=== PATIENT | male | born 1935 | race Hispanic/Latino ===

== ENCOUNTER 2017-02-24 04:26 | Inpatient (IN) | payer MEDICARE, OTHER ==
[2017-02-24] MEDS ORDERED: Albuterol-Ipratrop 3 mg / 0.5 (3 ml) UD IH STA (04:41)
--- NOTE | 2017-02-24 04:48 | ED PDOC ---
Arrival/HPI - General Historian: Spouse, Family - History of Present Illness Time/Duration: 1-3 hours Symptom Onset: Sudden <Jack Castano - Last Filed: 02/24/17 07:07> <Jeanette Hoyt - Last Filed: 02/24/17 08:19> - General Chief Complaint: Shortness Of Breath Time Seen by Provider: 02/24/17 04:33 - History of Present Illness Narrative History of Present Illness (Text): 02/24/17 04:44 81 year old male with past medical history of COPD, emphysema, CHF, a fib, CAD, and CKD presents to [facility] ED for shortness of breath. History per patient's daughter, patient has been having shortness of breath for the past 2 weeks. Last night, patient was sleeping at night and all of the sudden his shortness of breath worsened. EMS was called. On the way to the ED patient was sating at 81%, he was then given 1 dose of duoneb, 125mg of albuterol, and 1 dose of solumedrol. Patient's pulse ox improved to 90%. Patient's latest Echocardiogram was done in November 2016, showed EF 35%. Patient denies headache, dizziness, chest pain, abdominal pain, nausea, vomiting, diarrhea, or urinary symptoms. (Jack Castano) Past Medical History - Provider Review Nursing Documentation Reviewed: Yes - Infectious Disease Hx of Infectious Diseases: None - Tetanus Immunization Tetanus Immunization: Unknown - Cardiac Hx Cardiac Disorders: Yes Hx Congestive Heart Failure: Yes - Pulmonary Hx Chronic Obstructive Pulmonary Disease (COPD): Yes - Neurological Hx Neurological Disorder: No Hx Dizziness: No (denied) - HEENT Hx HEENT Disorder: No - Renal Hx Renal Disorder: No - Endocrine/Metabolic Hx Endocrine Disorders: No - Hematological/Oncological Hx Blood Disorders: No - Integumentary Hx Dermatological Disorder: No - Musculoskeletal/Rheumatological Hx Falls: No - Gastrointestinal Hx Gastrointestinal Disorders: Yes (hernia) Hx Gastroesophageal Reflux: Yes - Genitourinary/Gynecological Hx Genitourinary Disorders: No Hx Incontinence: (denied) - Psychiatric Hx Emotional Abuse: No Hx Physical Abuse: No Hx Substance Use: No - Surgical History Hx Joint Replacement: Yes (bilateral knee) - Anesthesia Hx Anesthesia: No Hx Anesthesia Reactions: No Hx Malignant Hyperthermia: No - Suicidal Assessment Feels Threatened In Home Enviroment: No <Jack Castano - Last Filed: 02/24/17 07:07> Family/Social History - Physician Review Nursing Documentation Reviewed: Yes Family/Social History: No Known Family HX Smoking Status: Former Smoker Hx Alcohol Use: No Hx Substance Use: No Hx Substance Use Treatment: No <Jack Castano - Last Filed: 02/24/17 07:07> - Physician Review Nursing Documentation Reviewed: Yes Family/Social History: No Known Family HX <EvelinaJeanette - Last Filed: 02/24/17 08:19> Allergies/Home Meds <Jack Castano - Last Filed: 02/24/17 07:07> <EvelinaJeanette - Last Filed: 02/24/17 08:19> Allergies/Adverse Reactions: Allergies No Known Allergies Allergy (Verified 04/08/16 09:20) Home Medications: Home Meds Medication Instructions Recorded Confirmed Atorvastatin [Lipitor] 20 mg PO DIN 03/05/16 11/20/16 Esomeprazole Magnesium [Nexium] 40 mg PO QAM 03/05/16 11/20/16 Fluticasone/Salmeterol 500/50 0 puff IH Q12 03/05/16 11/20/16 [Advair Diskus 500/50] Furosemide [Lasix] 40 mg PO QAM 03/05/16 11/20/16 Potassium Chloride [K-Tab ER] 10 meq PO QAM 03/05/16 11/20/16 Sildenafil Citrate [Sildenafil] 20 mg PO TID 03/05/16 11/20/16 diltiaZEM [Cardizem] 30 mg PO BID 03/05/16 11/20/16 Apixaban [Eliquis] 2.5 mg PO BID 04/08/16 11/20/16 Review of Systems - Physician Review All systems were reviewed & negative as marked: Yes - Review of Systems Constitutional: Fevers. absent: Fatigue Eyes: Normal. absent: Vision Changes ENT: Normal Respiratory: SOB, Cough, Wheezing Cardiovascular: absent: Chest Pain, Syncope Gastrointestinal: Normal. absent: Constipation, Diarrhea, Nausea, Vomiting Musculoskeletal: Normal. absent: Back Pain Skin: Normal. absent: Rash, Pruritis Neurological: Normal. absent: Headache, Dizziness Endocrine: Diaphoresis Hemo/Lymphatic: Normal Psychiatric: Normal. absent: Anxiety, Depression <Juan Castanobrionna - Last Filed: 02/24/17 07:07> Physical Exam Vital Signs Reviewed: Yes Temperature: Febrile Blood Pressure: Normal Pulse: Tachycardic Respiratory Rate: Normal Appearance: Positive for: Non-Toxic, Ill-Appearing Pain Distress: None Mental Status: Positive for: Alert and Oriented X 3 - Systems Exam Head: Present: Atraumatic, Normocephalic Pupils: Present: PERRL Extroacular Muscles: Present: EOMI Conjunctiva: Present: Normal Mouth: Present: Moist Mucous Membranes Neck: Present: Normal Range of Motion Respiratory/Chest: Present: Respiratory Distress (patient on breathing mask), Other (diffused crackles). No: Clear to Auscultation Cardiovascular: Present: Regular Rate and Rhythm, Normal S1, S2. No: Murmurs Abdomen: Present: Normal Bowel Sounds. No: Tenderness, Distention, Peritoneal Signs Upper Extremity: Present: Normal Inspection, Neurovascularly Intact. No: Cyanosis, Edema Lower Extremity: Present: Edema (bilateral lower extremity edema), NORMAL PULSES , Neurovascularly Intact Neurological: Present: GCS=15, CN II-XII Intact, Speech Normal Skin: Present: Warm, Erythematous Psychiatric: Present: Alert, Oriented x 3, Normal Insight, Normal Concentration <Jack Castano - Last Filed: 02/24/17 07:07> Vital Signs Temp Pulse Resp BP Pulse Ox 02/24/17 08:05 114 H 18 136/51 L 96 02/24/17 05:30 100.8 F H 119 H 18 107/63 92 L 02/24/17 04:45 20 92 L 02/24/17 04:42 99.7 F H 116 H 16 106/72 92 L Medical Decision Making Re-evaluation Time: 05:41 Reassessment Condition: Improving,but remains with symptoms (Patient on 3L Oxygen via nc, sating at 90%, sleeping, not in acute distress) <Jack Castano - Last Filed: 02/24/17 07:07> <Jeanette Hoyt - Last Filed: 02/24/17 08:19> ED Course and Treatment: 02/24/17 04:52 -CBC, CMP -BNP, cardiac iso, EKG -CRP, ESR, procal -Mg, Phos -VBG -blood, urine culture -UA -Duoneb 02/24/17 06:19 Lactate 2.1, code sepsis was called vancomycin and maxipime ordered 02/24/17 07:[address] Nance agreed with admission (Jack Castano) 02/24/17 05:53 Impression: In agreement with resident note, which includes further HPI details. Patient was seen and evaluated with resident, came up with plan and treatment together. Pt, whose past medical history includes COPD, emphysema, CHF, a fib, CAD, and CKD, presented for suddent onset of shortness of breath tonight. Plan: -- EKG -- Chest X-ray -- Labs, VBG, BNP, cardiac enzymes, blood cultures -- Urinalysis, urine cultures -- Duoneb -- Reassess and disposition Progress Notes: 02/24/17 08:18 Patient with noted history with low grade temp and wbc of 18K - lactic acid of 2.1 -code sepsis called - given iv antibiotics; Gentle hydration used instead of sepsis protocol because of history of CHF. Case discussed with Dr. Nance for admission to his service. (Jeanette Hoyt) - Lab Interpretations Lab Results: 02/24/17 05:43 02/24/17 05:43 Lab Results 02/24/17 05:45: pO2 70 H, VBG pH 7.39, VBG pCO2 43.0, VBG HCO3 26.0, VBG Total CO2 27.3, VBG O2 Sat (Calc) 94.9 H, VBG Base Excess 0.8, VBG Potassium 4.0, Sodium 136.0, Chloride 104.0, Glucose 106, Lactate 2.1, FiO2 21.0, Venous Blood Potassium 4.0 02/24/17 05:43: WBC 18.1 H D, RBC 4.76, Hgb 12.7 L, Hct 39.9 L, MCV 83.8, MCH 26.7, MCHC 31.8, RDW 20.3 H, Plt Count 181, MPV 11.1 H, Neutrophils % (Manual) 74 H, Band Neutrophils % 4 H, Lymphocytes % (Manual) 8 L, Atypical Lymphs % 1 H , Monocytes % (Manual) 13 H, Toxic Granulation Slight, Platelet Evaluation Normal, Anisocytosis (manual) 2+, ESR 8, PT 13.3 H, INR 1.23 H, APTT 30.1, Sodium 139, Chloride 99, Potassium 3.6, Carbon Dioxide 26, Anion Gap 18, BUN 38 H, Creatinine 1.6 H, Est GFR ( Amer) 50, Est GFR (Non-Af Amer) 42, Random Glucose 101, Calcium 9.2, Phosphorus 3.0, Magnesium 1.8, Total Bilirubin 2.3 H, AST 34, ALT 44, Alkaline Phosphatase 94, Lactate Dehydrogenase 656, Total Creatine Kinase 87, Troponin I 0.09, NT-Pro-B Natriuret Pep 8080 H, Total Protein 7.1, Albumin 3.9, Globulin 3.2, Albumin/Globulin Ratio 1.2 02/24/17 05:30: Urine Color Yellow, Urine Appearance Clear, Urine pH 6.0, Ur Specific [place] 1.020, Urine Protein Trace H, Urine Glucose (UA) Negative, Urine Ketones Negative, Urine Blood Negative, Urine Nitrate Negative, Urine Bilirubin Negative, Urine Urobilinogen 1.0 H, Ur Leukocyte Esterase Negative, Urine RBC 0 - 2, Urine WBC 0 - 2, Ur Epithelial Cells 3 - 4, Urine Bacteria Mod - RAD Interpretation Narrative RAD Interpretations (Text): 02/24/17 05:38 CXR showed diffused fa (Jack Castano) Radiology Orders: 02/24/17 04:42 CXR [CHEST PORTABLE] [RAD] Stat - Medication Orders Current Medication Orders: Sodium Chloride (Sodium Chloride 0.9%) 1,000 mls @ 100 mls/hr IV .Q10H [facility] Last Admin: 02/24/17 07:29 Dose: 100 MLS/HR eMAR Start Stop Document 02/24/17 07:29 EQ (Rec: 02/24/17 07:29 EQ [id number]) Intravenous Solution Start Date 02/24/17 Start Time 07:29 Discontinued Medications Albuterol/Ipratropium (Duoneb 3 Mg/0.5 Mg (3 Ml) Ud) 3 ml IH STAT STA Stop: 02/24/17 04:42 Last Admin: 02/24/17 05:00 Dose: 3 ML Cefepime HCl (Maxipime 2gm) 100 mls @ 100 mls/hr IVPB STAT STA PRN Reason: Protocol Stop: 02/24/17 07:28 Last Admin: 02/24/17 07:29 Dose: 100 MLS/HR eMAR Start Stop Document 02/24/17 07:29 EQ (Rec: 02/24/17 07:29 EQ [id number]) Intravenous Solution Start Date 02/24/17 Start Time 07:29 Vancomycin HCl (Vancomycin 1gm) 250 mls @ 167 mls/hr IVPB STAT STA PRN Reason: Protocol Stop: 02/24/17 07:58 Ipratropium [place] (Atrovent) 0.5 mg IH STAT STA Stop: 02/24/17 07:08 Last Admin: 02/24/17 08:04 Dose: 0.5 MG Levalbuterol HCl (Xopenex) 1.25 mg IH STAT STA Stop: 02/24/17 07:07 Last Admin: 02/24/17 08:04 Dose: 1.25 MG Methylprednisolone (Solu-Medrol) 125 mg IVP STAT STA Stop: 02/24/17 07:07 Last Admin: 02/24/17 07:29 Dose: Disposition/Present on Arrival - Present on Arrival Any Indicators Present on Arrival: Yes History of DVT/PE: No History of Uncontrolled Diabetes: No Urinary Catheter: Yes History of Decub. Ulcer: No History Surgical Site Infection Following: None - Disposition Have Diagnosis and Disposition been Completed?: Yes Disposition Time: 07:08 <Jack Castano - Last Filed: 02/24/17 07:07> - Present on Arrival Any Indicators Present on Arrival: No - Disposition Have Diagnosis and Disposition been Completed?: Yes Disposition Time: 07:00 Patient Plan: Admission <Jeanette Hoyt - Last Filed: 02/24/17 08:19> - Disposition Diagnosis: Sepsis, CHF exacerbation, COPD exacerbation Disposition: HOSPITALIZED Patient Problems: Current Active Problems Problem Status Diagnosed CHF exacerbation Acute COPD exacerbation Acute Sepsis Acute Condition: STABLE
[2017-02-24 05:49] LABS: URINE BILIRUBIN NEGATIVE (NEGATIVE); URINE BLOOD NEGATIVE (NEGATIVE); URINE GLUCOSE (UA) NEGATIVE (NEGATIVE); URINE KETONE NEGATIVE (NEGATIVE); URINE LEUKOCYTE ESTERASE NEGATIVE Leu/uL (NEGATIVE); URINE PROTEIN TRACE mg/dL (<30 mg/dL)
[2017-02-24 05:50] LABS: URINE APPEARANCE CLEAR (CLEAR); URINE COLOR YELLOW (YELLOW)
[2017-02-24 05:52] LABS: VENOUS BLOOD GAS BASE EXCESS 0.8 mmol/L (0.0-2.0); VENOUS BLOOD PH 7.39 (7.32-7.43)
[2017-02-24 05:58] LABS: ALB/GLOB RATIO 1.2 (1.1-1.8); BILIRUBIN,TOTAL 2.3 mg/dL (0.2-1.3); CALCIUM 9.2 mg/dL (8.4-10.5); MAGNESIUM 1.8 mg/dL (1.7-2.2); POTASSIUM 3.6 mmol/L (3.6-5.0); TOTAL PROTEIN 7.1 g/dL (5.8-8.3)
[2017-02-24 06:00] LABS: HEMATOCRIT 39.9 % (42.0-52.0); INR 1.23 (0.93-1.08); MEAN CELL VOLUME 83.8 fL (80.0-105.0); MEAN CORPUSCULAR HEMOGLOBIN 26.7 pg (25.0-35.0); MEAN CORPUSCULAR HGB CONC 31.8 g/dl (31.0-37.0); MEAN PLATELET VOLUME 11.1 fl (7.0-11.0); PARTIAL THROMBOPLASTIN TIME 30.1 Seconds (23.7-30.8); PLATELET COUNT 181 10^3/uL (120.0-450.0); RED CELL DISTRIBUTION WIDTH 20.3 % (11.5-14.5); WHITE BLOOD COUNT 18.1 10^3/ul (4.5-11.0)
[2017-02-24 06:02] LABS: URINE RBC 0 - 2 /hpf (0-2)
[2017-02-24 06:06] LABS: URINE BACTERIA MOD (NEG)
[2017-02-24 06:07] LABS: URINE WBC 0 - 2 /hpf (0-6)
[2017-02-24 06:09] LABS: TROPONIN I 0.09 ng/mL
[2017-02-24 06:14] LABS: ADD MANUAL DIFF? YES
[2017-02-24] MEDS ORDERED: Cefepime IV 2 gm in NS 100 ML IVPB STA (06:29)
[2017-02-24] MEDS ORDERED: Vancomycin 1gm in NS 250ml 250 ML IVPB STA (06:29)
[2017-02-24] MEDS ORDERED: Sodium Chloride 0.9% 1,000 ML IV SCH (06:30)
[2017-02-24 06:57] LABS: ATYPICAL LYMPHOCYTE 1 % (0.0-0.0); BAND 4 % (0-2); NEUTROPHIL 74 % (50.0-70.0)
[2017-02-24 06:58] LABS: PLATELET ESTIMATE NORMAL (NORMAL)
[2017-02-24 06:59] LABS: ANISOCYTOSIS 2+; TOXIC GRANULATION SLIGHT
[2017-02-24] MEDS ORDERED: Levalbuterol 1.25 MG/3 ML Inhal Soln UD IH STA (07:06)
[2017-02-24] MEDS ORDERED: Ipratropium 0.02% Inhal Soln (0.5 mg/2.5 ml) UD IH STA (07:07)
[2017-02-24 08:14] LABS: ERYTHROCYTE SEDIMENTATION RATE 8 mm/hr (0.00-15.0)
--- NOTE | 2017-02-24 08:57 | RAD ---
HISTORY: shortness of breath COMPARISON: 11/21/2016 FINDINGS: LUNGS: Patchy opacity at both lung bases common nonspecific. Opacity at left base appears new. PLEURA: No significant pleural effusion identified, no pneumothorax apparent. CARDIOVASCULAR: Normal. OSSEOUS STRUCTURES: No significant abnormalities. VISUALIZED UPPER ABDOMEN: Normal. OTHER FINDINGS: None. IMPRESSION: Bibasilar patchy opacity. Possible pneumonia. Followup advised.
[2017-02-24 09:16] LABS: VENOUS BLOOD GAS BASE EXCESS -0.7 mmol/L (0.0-2.0); VENOUS BLOOD PH 7.42 (7.32-7.43)
--- NOTE | 2017-02-24 10:42 | CARD ---
APPROVED REPORT EKG Measurement Heart [id number] <Conclusion> Atrial fibrillation with rapid ventricular response ST & T wave abnormality, consider inferior ischemia or digitalis effect Abnormal ECG
[2017-02-24] MEDS ORDERED: Digoxin 500 mcg/2ml (0.5 mg/2ml) Inj IVP ONE (11:54)
[2017-02-24 12:23] VITALS: PULSE 103
[2017-02-24 12:52] LABS: VENOUS BLOOD GAS BASE EXCESS -2.3 mmol/L (0.0-2.0); VENOUS BLOOD PH 7.42 (7.32-7.43)
--- NOTE | 2017-02-24 13:13 | HP ---
CHIEF COMPLAINT: Shortness of breath, temperature 100.8. HISTORY OF PRESENT ILLNESS: The patient is an 81-year-old male with a 1-week history of sl ightly worsening shortness of breath and difficulty in bringing up sputum. He has a history of sever e chronic obstructive pulmonary disease secondary to tobacco ([id number]) and has known symptomati c obstructive coronary artery disease following an earlier cardiac catheterization. He was recently in the hospital in November of the same year and was placed on Primacor (milrinone) and improved enoug h so that he could be able to be discharged home and has done well up until the past week. At the [facility] admission, he remained on 10 mg of prednisone daily and this seemed to carry him up until now. In the Emergency Room, he is seen and has an elevated white count of 18,000 with left shift and a tem perature of 100.8. PAST MEDICAL HISTORY: 1. Atrial flutter/fibrillation with rapid heart rate, non-ST NH. 2. Gout 3. Renal insufficiency. 4. Severe chronic obstructive pulmonary disease with exacerbations. ALLERGIES: None. MEDICATIONS: Cardizem 30 mg b.i.d., prednisone 10 mg daily, sildenafil 20 mg t.i.d., Lasix 40 mg jody ly, Advair Diskus 500/50 b.i.d., Nexium 40 mg daily, Lipitor 20 at dinner and Eliquis 2.5 b.i.d. SOCIAL HISTORY: His tobacco has discontinued 15 years ago. PHYSICAL EXAMINATION: VITAL SIGNS: He weighs 145 pounds. His blood pressure is 130/80 and his pulse is 117. LUNGS: Bibasilar crackles with rhonchi. EXTREMITIES: Without edema or clubbing. NEUROLOGIC: Focally intact. IMPRESSION UPON ADMISSION: 1. Exacerbated chronic obstructive pulmonary disease with pneumonitis and probable congestive heart failure. 2. Renal insufficiency. 3. Atrial fibrillation. 4. Gout. RECOMMENDATION UPON ADMISSION: Consultation with cardiology, pulmonology and initiation of antibioti cs as well as diuresis and atrial fibrillation rate management. This dictation will be electronically signed without being read. Sky Nance MD cc: [phone] TT: 02/24/2017 13:13:02 en
[2017-02-24 15:21] VITALS: BMI 24.7
[2017-02-24] MEDS: MethylPREDNISolone 40 mg Vial IVP SCH ×2 (15:52→21:21)
[2017-02-24] MEDS: Sildenafil 20 MG TAB PO SCH ×2 (15:52→19:09)
[2017-02-24] MEDS ORDERED: Albuterol-Ipratrop 3 mg / 0.5 (3 ml) UD ONE ×2 (16:27→20:00)
[2017-02-24] MEDS: Albuterol-Ipratrop 3 mg / 0.5 (3 ml) UD IH SCH ×2 (16:35→19:49)
--- NOTE | 2017-02-24 18:27 | CON ---
DATE: 02/24/2017 REASON FOR CONSULTATION: Shortness of breath 1-2 weeks, low grade fever, elevated WBC count, history of atrial fibrillation chronic, and CAD as well as pulmonary hypertension. BRIEF CLINICAL HISTORY: This is an 81-year-old male with past medical history significant for nonobs tructive coronary artery disease status post cardiac catheterization 12/08/2015 when the patient was a dmitted with [id number] myocardial infarction. History of chronic kidney disease, ex-smoker, CODING TECH D, advanced COPD, chronic atrial fibrillation on Eliquis, history of syncope, status post loop record er implantation on 03/05/2016, history of Holter in the past, who admitted here with one week history of cough, shortness of breath and difficulty in bringing the phlegm. This morning, he has a low grad e fever, elevated WBC count as well. PAST HISTORY: Significant for pulmonary hypertension, [id number] myocardial infarction, status p ost cardiac catheterization 12/08/2015, nonobstructive coronary artery disease, chronic obstructive pu lmonary disease, advanced COPD, chronic atrial fibrillation on Eliquis, status post loop recorder imp lantation on 03/05/2016. PREVIOUS CARDIAC WORKUP: As follows: The patient had a cardiac catheterization that revealed normal coronaries, preserved ejection fraction 55% to 60%, EDP was in the range of 15-18, pulmonary hyperte nsion with pulmonary vascular resistance 15-16 Wood Units, atrial fibrillation, controlled rate, vee re PAD, CKD. Right heart catheterization revealed RA 18, RV 80/20, PA pressure 80/40, mean PA 50-55. Pulmonary capillary wedge pressure 15. Pulmonary vascular resistance 15-16 Wood Units. Cardiac ou tput 2.3 liter, cardiac index was 1.4 liters, ejection fraction 55% to 60%. Last echo 12/02/2015 show s ejection fraction 50%, RV severely dilated, moderate RV dysfunction, trace aortic regurgitation, tr regina mitral regurgitation, [id number] tricuspid regurgitation. Status post loop recorder date d 03/05/2016 when the patient had multiple episodes of syncope. Since then, patient has no further ep isode of syncopal episode noted. Most recent echo dated 11/22/2016 done. That shows ejection fractio n decreased to 35% to 40%, systolic RV function is moderately to severely reduced, mild mitral regurg itation, moderate tricuspid regurgitation, RV systolic pressure 48, mild pulmonary vascular insuffici ency, no vegetation or thrombus noted. The patient had a loop recorder on 03/08/2016. The most recen t study is an echo that was 11/22/2016 that shows decreased LV function, ejection fraction 35%. That echo was 11/22/2016. Ejection fraction 35%. The patient had a MUGA scan done prior to that, 11/23/2016 . That shows normal LV function, ejection fraction 60%, diffuse RV hypokinesis, dated 11/23/2016 is t he MUGA scan. SOCIAL HISTORY: History of smoking, ex-smoker, quit more than 20 years ago, but [id number] of smok ing. No history of alcohol abuse. ALLERGIES: No known drug allergy. CURRENT MEDICATIONS: The patient is taking at home prednisone 10 mg daily, Cardizem 30, sildenafil t hat is Revatio 20 mg 3 times a day, potassium chloride, Lasix 40, atorvastatin, Eliquis. REVIEW OF SYSTEMS: As per HPI. PHYSICAL EXAMINATION: As follows: VITAL SIGNS: Temperature afebrile, heart rate 55, blood pressure 121/74. HEENT: PERRLA, intact. NECK: Supple. No carotid bruits. No thyromegaly. CHEST: Clear to auscultation. HEART: S1, S2 regular. ABDOMEN: Soft. EXTREMITIES: Clubbing and cyanosis negative. BLOOD WORKUP: As follows: WBC 18.1, hemoglobin 12.7, hematocrit 39.9, platelet count 181. Chemistr y shows sodium ____, potassium 3.6, chloride 90, carbon dioxide 26, anion gap of 18, BUN ____, creati nine 1.6. Troponin 0.29. BNP 8880. EKG, AFib with rapid ventricular rate. Chest x-ray shows mild congestion, cannot rule out right lowe r lobe pneumonia, but definitely vascular congestion. IMPRESSION: Congestive heart failure, decompensated congestive heart failure, probably acute exacerb ation of chronic obstructive pulmonary disease, coronary artery disease, severe pulmonary hypertensio n, severe pulmonary hypertension, acute exacerbation of chronic obstructive pulmonary disease, pulmon tyson hypertension, normal coronaries. Status post cardiac catheterization 11/14/2014, right heart andrew terization said severe pulmonary hypertension, pulmonary vascular resistance 15-16 Wood Units, pulmon tyson artery pressure was an 80. Last echo shows ejection fraction 35%, but MUGA scan shows ejection f raction 50%. Ex-tobacco abuse, chronic kidney disease, ex-tobacco abuse. On Eliquis. RECOMMENDATION: Resume Eliquis. Continue Cardizem. Continue Revatio. We will cover for, treat as a COPD exacerbation with antibiotic. The patient was on prednisone 10 mg at home. We will resume th at. Increase to 20 mg t.i.d. for acute stressful situation and gradually then taper off for pulmonar y evaluation as well. We will follow with you. Gentle diuretic. Thank you, Dr. Nance, for providing the opportunity in taking care of the patient. Janette Owusu MD cc: [id number] TT: 02/24/2017 18:26:28 Confirmation # [id number] Dictation # [id number] sn
[2017-02-24 18:44] LABS: VENOUS BLOOD GAS BASE EXCESS -1.3 mmol/L (0.0-2.0); VENOUS BLOOD PH 7.42 (7.32-7.43)
[2017-02-24] MEDS: Pantoprazole 40 mg EC Tab PO SCH (19:08)
[2017-02-24] MEDS ORDERED: guaiFENesin DM 100 mg-10 mg/5 ml UD PO PRN (20:16)
--- NOTE | 2017-02-24 21:52 | CON ---
DATE: 02/24/2017 REQUESTING PHYSICIAN: Dr. Sky Nance. CHIEF COMPLAINT: The patient presents with shortness of breath, cough, wheezing, chest congestion. HISTORY OF PRESENT ILLNESS: The patient is an 81-year-old male with history of COPD/emphysema, conge stive heart failure, atrial fibrillation, coronary artery disease and chronic kidney disease. The pa sujatha has been complaining of shortness of breath for approximately the last 2 weeks and family membe rs state that he has been refusing to come to the Emergency Room. He has cough, congestion, wheezing and dyspnea on exertion. At home, no fever, chills, no nausea, vomiting, but in the Emergency Room today he did have a fever. He has a history of heart failure and his ejection fraction is about 35%. At this time, he is on O2 support, fairly comfortable, sitting up on the side of the bed with famil y members visiting. The patient has no complaints of chest pain at this time and states that he is f eeling better since receiving the treatments in the hospital. PAST MEDICAL HISTORY: As above. ALLERGIES: He has no known allergies. CURRENT MEDICATIONS: Can be evaluated as per the nurse's intake form. SOCIAL HISTORY: The patient is a former smoker. No ETOH abuse. No drug abuse. FAMILY HISTORY: Noncontributory. REVIEW OF SYSTEMS: CONSTITUTIONAL: When the patient presented, he did have a fever. HEENT: Within normal limits. RESPIRATORY: He had shortness of breath, cough, wheezing, chest congestion. CARDIOVASCULAR: No chest pain, no palpitations. GASTROINTESTINAL: All normal. MUSCULOSKELETAL: All normal. NEUROPSYCHIATRIC: All normal. ENDOCRINE: All normal. HEMATOLOGIC: All normal. IMMUNOLOGIC: All normal. ENDOCRINE: All normal. INTEGRITY: All normal. PHYSICAL EXAMINATION: VITAL SIGNS: His temperature is 100.8, his pulse is 119, respirations are 18, and BP is 107/63. SKIN: Warm and dry. HEAD: Atraumatic, normocephalic. EYES: Reactive to light. EARS, NOSE AND THROAT: Seem to be within normal limits. NECK: Supple, no JVD, no thyroid enlargement, no lymph nodes. HEART: Has a regular rate and rhythm. Normal S1, S2. LUNGS: Reveal mild rhonchi bilaterally with decreased breath sounds at the bases. ABDOMEN: Soft, nontender, normal bowel sounds. No organomegaly noted. GENITALIA AND RECTAL: Deferred. MUSCULOSKELETAL: No joint deformities. EXTREMITIES: Reveal trace lower extremity edema. NEUROLOGIC: He seemed to be grossly intact. LABORATORY DATA: His white count is 18.1, hemoglobin is 12.7, hematocrit 39.9 with platelets of 181, 000. Sodium is 139, potassium 3.6, chloride 99, CO2 of 26 with a BUN of 38, creatinine of 1.6 and gl ucose is 101. Chest x-ray reveals that there are bibasilar patchy opacities, possible pneumonia. No te that there is a new left lower lobe infiltrative process. IMPRESSION: The patient has left lower lobe pneumonia, has acute exacerbation of his chronic obstruc tive pulmonary disease, has a history of congestive heart failure, atrial fibrillation, coronary tonya ry disease, chronic kidney disease. PLAN: We will continue with DuoNeb and his Eliquis. The patient is getting Lasix for appropriate di uresis and we will continue with his digoxin. He is on Revatio or sildenafil for his pulmonary hyper tension and is getting Solu-Medrol as well as antibiotics of Zithromax and vancomycin. He is on Xope nex as a bronchodilator as well. The patient is getting Protonix and continues to get his Lipitor. We will continue with O2 via nasal cannula. Also, continue with aggressive pulmonary toilet. We skyler l follow his chest x-ray closely and continue to treat aggressively along with the other consultants and the primary care doctor. Kei Beltran MD cc: [id number] TT: 02/24/2017 21:51:38 Confirmation # [id number] Dictation # [id number] samuel
[2017-02-24 22:02] LABS: VENOUS BLOOD GAS BASE EXCESS -0.5 mmol/L (0.0-2.0); VENOUS BLOOD PH 7.44 (7.32-7.43)
[2017-02-25] MEDS: Albuterol-Ipratrop 3 mg / 0.5 (3 ml) UD IH SCH ×6 (01:08→23:29)
--- NOTE | 2017-02-25 03:49 | CP.PCM.PCO ---
Physician Communication Note - Physician Communication Note Physician Communication Note: COBPD-Pneumonia/CHF-CAD Ischemia-A Fib
[2017-02-25 07:24] LABS: ADD MANUAL DIFF? NO
[2017-02-25 07:28] LABS: BASO # 0.01 K/mm3 (0.0-2.0); BASO % 0.1 % (0.0-3.0); GRAN # 14.48 (1.4-6.5); GRAN % 89.9 % (50.0-68.0); HEMATOCRIT 35.8 % (42.0-52.0); LYMPH # 0.5 (1.2-3.4); LYMPH % 3.4 % (22.0-35.0); MEAN CORPUSCULAR HEMOGLOBIN 26.3 pg (25.0-35.0); MEAN CORPUSCULAR HGB CONC 31.3 g/dl (31.0-37.0); MEAN PLATELET VOLUME 10.8 fl (7.0-11.0); MONO # 1.1 (0.1-0.6); MONO % 6.6 % (1.0-6.0); PLATELET COUNT 153 10^3/uL (120.0-450.0); RED CELL DISTRIBUTION WIDTH 20.3 % (11.5-14.5); WHITE BLOOD COUNT 16.1 10^3/ul (4.5-11.0)
[2017-02-25 07:49] LABS: ALB/GLOB RATIO 1.2 (1.1-1.8); ALKALINE PHOSPHATASE 72 U/L (38-133); ALT/SGPT 39 U/L (7-56); AST/SGOT 30 U/L (15-59); BILIRUBIN,TOTAL 1.1 mg/dL (0.2-1.3); BLOOD UREA NITROGEN 47 mg/dL (7-21); CALCIUM 8.7 mg/dL (8.4-10.5); CARBON DIOXIDE 26 mmol/L (21-33); CHLORIDE 102 mmol/L (98-107); CHOLESTEROL 67 mg/dL (130-200); GFR AFRICAN-AMERICAN 54; GLUCOSE,RANDOM 174 mg/dL (70-110); MAGNESIUM 2.1 mg/dL (1.7-2.2); PHOSPHOROUS 3.5 mg/dL (2.5-4.5); SODIUM 139 mmol/L (132-148); TOTAL PROTEIN 6.5 g/dL (5.8-8.3)
[2017-02-25 08:08] LABS: TROPONIN I 0.16 ng/mL
[2017-02-25] MEDS: Pantoprazole 40 mg EC Tab PO SCH ×2 (08:59→17:55)
[2017-02-25] MEDS: MethylPREDNISolone 40 mg Vial IVP SCH ×2 (09:10→21:24)
--- NOTE | 2017-02-25 09:59 | PQF CHF ---
This form is a permanent part of the medical record Clarification of your documentation is requested to better reflect the severity of illness and intensity of treatment of your patient. Indicators present Documentation of decompensated CHF requires further clarification as to Type & acuity POA. To reflect severity of illness & intensity of tx, please document below. [x] Diagnosis of CHF and/or history of CHF [x] BNP > 200 [] Imaging Finding of Pulmonary Edema /Pleural Effusions [] Fluid/Volume Overload [] Pitting edema [] Ejection Fraction < 40% (Indicative of Systolic Heart Failure) [] Ejection Fraction > 40% (Indicative of Diastolic Heart Failure) [x] Dyspnea / Orthopenea / Paroxysmal Nocturnal Dyspnea [] Other: Location in the medical record that reflects the above clinical findings: [x] Card consult Treatment Provided: [x] IV Lasix PHYSICIAN'S RESPONSE Based on your medical judgment of the clinical indicators outlined above, are you treating this patient for a known or suspected: [] Acute CHF [] Systolic [] Diastolic [] Combined [] Chronic CHF [] Systolic [] Diastolic [] Combined [x] Acute on Chronic CHF [x]Systolic [] Diastolic [] Combined [] CHF due hypertension [] Acute systolic []Chronic systolic [] Acute/ chronic systolic [] Other, please indicate: [] [] If Unable to Determine, please check the box, sign and date. Present On Admission (POA) Indicator: [] Present at the time of admission [] Not present at the time of admission [] Clinically Undetermined In responding to this query, please exercise your independent professional judgment. The fact that a question is asked does not imply that any particular answer is desired or expected. Thank you for your clarification on this documentation. If you have any questions please call:[ ][phone] * Thank you, [ ] Danuta Santana RN CDS bi manager CINTIA
--- NOTE | 2017-02-25 10:14 | PQF SEPSIS ---
This form is a permanent part of the medical record Clarification of your documentation is requested to better reflect the severity of illness and intensity of treatment of your patient. Indicators present Code Sepsis on admission w/ elevated Lactic acid & WBC > 18. , hypotension. Please document if you agree Sepsis was POA [] Temp < 96.8 or > 100.4 [x] WBC count > 12,000/mm3 or <000/mm3 or 10% immature neutrophils [x] Heart Rate > 90 [] Respiratory Rate > 20 [] Fever or hypothermia [] Chills [] Positive blood cultures [x] Hypotension [] Metabolic acidosis (Elevated lactate level, anion gap or reduced blood pH) [] Acute confusion /Altered Mental Status [] Shock [] Other: [] Location in the medical record that reflects the above clinical findings: [x] ER CODE SEPSIS Treatment Provided: x[] IV ABX, IV- NS-1000/ hr PHYSICIAN'S RESPONSE Based on your medical judgment of the clinical indicators outlined above, are you treating this patient for a known or suspected: [] Sepsis / Septicemia Please specify organism if known [] [] SIRS (Systemic Inflammatory Response Syndrome) [] Severe Sepsis (Sepsis with Associated Organ Dysfunction) [] Fever of Unknown Origin [] Other, please indicate: [] [] If Unable to Determine, please check the box, sign and date. Present On Admission (POA) Indicator: [] Present at the time of admission [] Not present at the time of admission [] Clinically Undetermined In responding to this query, please exercise your independent professional judgment. The fact that a question is asked does not imply that any particular answer is desired or expected. Thank you for your clarification on this documentation. If you have any questions please call:[ ][phone] * Thank you, [ ]Danuta Santana RN CDS quality cloth tester Dx Pulmonary sepsis-Pneumonitis Temp 100.WBC 18K Pulse 117 Present on admission Angelina Nance MD FACS MTDD
[2017-02-25] MEDS: Azithromycin 500MG/NS 250ml 250 ML IVPB SCH (11:01)
[2017-02-25] MEDS: Sildenafil 20 MG TAB PO SCH ×3 (11:01→18:40)
[2017-02-25] MEDS: cefTRIAXone 1 gm 100 ML IVPB SCH (13:37)
--- NOTE | 2017-02-25 16:18 | PN ---
DATE: 02/25/2017 The patient is in room 262, bed 1. REASON FOR CONSULTATION: Shortness of breath, low-grade fever, elevated WBC count, history of chroni c atrial fibrillation, coronary artery disease, pulmonary hypertension. HISTORY OF PRESENT ILLNESS: An 81-year-old male with a past medical history significant for nonobstr uctive coronary artery disease, status post cardiac catheterization on 12/08/2015 when patient was adm itted with non-ST segment elevation myocardial infarction, history of chronic kidney disease, ex-smok er, COPD, advanced COPD, chronic atrial fibrillation on Eliquis, status post loop recorder implantati on on 03/05/2016, history of cough, shortness of breath, difficulty bringing up the sputum. The patie nt states that he is feeling better, but he is still getting episodes of shortness of breath. Denies chest pain or palpitation. The patient's detailed cardiac history is mentioned in our consult dated 02/24/2017. PHYSICAL EXAMINATION: VITAL SIGNS: Blood pressure 116/71, respirations 16, pulse 74, temperature 97.8. HEAD: Normocephalic. EYES: Pupils normal. Conjunctivae slightly pale. NECK: JVP low. Carotid equal. THORAX: AP diameter slightly increased. LUNGS: Expiratory wheezing. No significant rales. CARDIOVASCULAR: S1, S2. ABDOMEN: Soft, no tenderness, no organomegaly. Bowel sounds normal. EXTREMITIES: No clubbing, no cyanosis. LABORATORIES: WBC 16.1, hemoglobin 11.2, hematocrit 35.8, platelets . Sodium 139, potassium 4. 0, BUN 47, creatinine 1.5. Yesterday, troponin was 0.09. Today's troponin 0.27. Calcium 8.7, phosp horous 3.5, magnesium 2.1. BNP 14,700. Total protein, albumin normal. Chest x-ray: Bibasilar patchy opacity, possible pneumonia. DIAGNOSES: Acute respiratory distress, exacerbation of chronic obstructive pulmonary disease, pneumo dayanara, respiratory tract infection, coronary artery disease, congestive heart failure, severe pulmonary hypertension, nonobstructive coronaries on catheterization on 11/14/2014 with a pulmonary artery pres sure of 80 mmHg. Last echo showed ejection fraction 35%, but MUGA scan showed ejection fraction of 5 0%. Ex-tobacco abuse, chronic kidney disease. RECOMMENDATION: Continue DuoNeb hand nebulizer therapy. Continue Eliquis 2.5 b.i.d. Digoxin 0.25 o nce was given. Furosemide 40 mg IV daily, Lipitor 20 mg p.o. daily, cefepime IV 2 grams stat was giv en, Revatio 20 mg p.o. t.i.d., Rocephin 1 gram IV daily, Solu-Medrol 20 mg IV q. 12 hours, azithromyc in 500 mg IV daily. The patient's troponin today elevated. The patient has no chest pain. It can b e related to elevated BUN, can be false elevation. However, repeat troponin in a.m. We will repeat CBC, electrolytes, BUN and troponin in the morning. We will add Ecotrin 81 mg daily. Probably, trop onin is false because catheterization in 11/2014 showed normal coronaries and patient does not have an y chest pain. We will hold off to put on aspirin at this moment. We will repeat the troponin tomorr ow morning. Janette Amor MD cc: [id number] TT: 02/25/2017 16:10:18 Confirmation # [id number] Dictation # [id number] en 02/25/2017 15:18:23
[2017-02-26] MEDS: Albuterol-Ipratrop 3 mg / 0.5 (3 ml) UD IH SCH ×5 (03:33→21:06)
[2017-02-26 07:05] LABS: BASO # 0.01 K/mm3 (0.0-2.0); BASO % 0.1 % (0.0-3.0); GRAN # 12.61 (1.4-6.5); GRAN % 90.2 % (50.0-68.0); HEMATOCRIT 34.1 % (42.0-52.0); LYMPH # 0.3 (1.2-3.4); LYMPH % 2.3 % (22.0-35.0); MEAN CORPUSCULAR HEMOGLOBIN 26.6 pg (25.0-35.0); MEAN CORPUSCULAR HGB CONC 31.7 g/dl (31.0-37.0); MEAN PLATELET VOLUME 11.5 fl (7.0-11.0); MONO % 7.4 % (1.0-6.0); PLATELET COUNT 154 10^3/uL (120.0-450.0); RED CELL DISTRIBUTION WIDTH 20.3 % (11.5-14.5)
[2017-02-26 07:11] LABS: ADD MANUAL DIFF? NO
[2017-02-26 07:18] LABS: CALCIUM 8.9 mg/dL (8.4-10.5); MAGNESIUM 2.2 mg/dL (1.7-2.2); PHOSPHOROUS 3.4 mg/dL (2.5-4.5); POTASSIUM 4.1 mmol/L (3.6-5.0)
[2017-02-26 07:30] LABS: TROPONIN I 0.09 ng/mL
[2017-02-26] MEDS: Pantoprazole 40 mg EC Tab PO SCH ×2 (08:07→17:29)
[2017-02-26] MEDS ORDERED: Insulin Regular 1 UNITS/0.01 ML ML SC STA (09:26)
--- NOTE | 2017-02-26 09:38 | CP.PCM.PCO ---
Physician Communication Note - Physician Communication Note Physician Communication Note: tcu eVAL-uNSAFE pULSE 144 ON AMBULATION/gLUCOSE 340
[2017-02-26] MEDS: cefTRIAXone 1 gm 100 ML IVPB SCH (09:40)
[2017-02-26] MEDS: MethylPREDNISolone 40 mg Vial IVP SCH ×2 (09:41→22:44)
[2017-02-26] MEDS: Sildenafil 20 MG TAB PO SCH ×3 (09:43→17:29)
[2017-02-26] MEDS: Azithromycin 500MG/NS 250ml 250 ML IVPB SCH (11:02)
[2017-02-26] MEDS ORDERED: Insulin Reg-LOW-Coverage SC SCH (11:30)
--- NOTE | 2017-02-26 15:29 | PN ---
DATE: 02/26/[address] Amor. The patient is mildly short of breath on nasal O2, but he is able to conduc t a long conversation on the phone. He denies any chest pain. PHYSICAL EXAMINATION: VITAL SIGNS: Blood pressure 128/83, heart rate 83, temperature 97.7, respirations 18. HEENT: Pale conjunctivae. CHEST: Bilateral rhonchi. HEART: S1, S2 irregular. ABDOMEN: Soft. EXTREMITIES: Trace leg edema. LABORATORIES: Hemoglobin and hematocrit 10.8 and 34.1, white count is 14,000, platelet count 154,000 . SMA-7: Sodium 136, potassium 4.1, chloride 100, CO2 25, glucose 311, BUN 53, creatinine 1.5. EKG on admission atrial fibrillation with rapid ventricular response ____ [address]-T wave changes, consider inferior ischemia versus digitalis effect. Echocardiographic study performed in 11/2016 rev ealed ejection fraction in the range of 35%-40%, moderate to severely reduced right ventricular systo lic function with mild to moderate pulmonary hypertension. ASSESSMENT: 1. Chronic atrial fibrillation. 2. Chronic obstructive lung disease. 3. Coronary artery disease. 4. Pulmonary hypertension. 5. Congestive heart failure. 6. Mild anemia. 7. Pneumonia. RECOMMENDATIONS: Continue Cardizem 30 mg twice a day, Eliquis at 2.5 mg once a day, Lasix at 40 mg i ntravenous once daily, Lipitor 20 mg once a day, Revatio 20 mg t.i.d. for pulmonary hypertension. Co ntinue IV Rocephin at 1 gram daily and Zithromax 500 mg intravenously daily. Continue Solu-Medrol 20 mg intravenously q. 12 hours. Giuseppe Hamilton MD cc: [id number] TT: 02/26/2017 15:28:42 Confirmation # [id number] Dictation # [id number] jn
[2017-02-26] MEDS: Insulin Reg-MEDIUM-Coverage SC SCH ×2 (17:28→22:46)
--- NOTE | 2017-02-26 19:18 | PN ---
DATE: 02/26/2017 SUBJECTIVE: The patient is resting in the chair with O2 via nasal cannula. [facility], cough, wheezing or congestion. He is very comfortable and stable while at [facility]. No fever or chills. No nausea or vomiting, no abdominal pain, chest pain. The patient had phys ical therapy today and while walking did have tachycardia and episodes of hypoxia, but once the patie nt relaxed and continued with the O2 via nasal cannula, all vital returned to normal and the patient' s O2 sat was 95%. The patient does have oxygen as well as nebulizer at home and states that he uses them and is very comfortable with his respiratory status while home at rest. PAST MEDICAL HISTORY: Note that the patient does have severe COPD and home oxygen. PHYSICAL EXAMINATION: VITAL SIGNS: His temperature is 97.1. His pulse is 65, respirations are 18, and BP is 134/55. SKIN: Warm and dry. HEAD: Atraumatic, normocephalic. EYES: Reactive to light. EARS, NOSE AND THROAT: Seem to be within normal limits. NECK: Supple. No JVD, no thyroid enlargement, no lymph nodes. HEART: Has a regular rate and rhythm. Normal S1, S2. LUNGS: Reveal decreased breath sounds bilaterally, but no obvious rales, rhonchi or wheezing. ABDOMEN: Soft, nontender, normal bowel sounds. No organomegaly noted. GENITALIA AND RECTAL: Deferred. MUSCULOSKELETAL: No joint deformities. EXTREMITIES: Reveal trace lower extremity edema. NEUROLOGIC: He seems to be grossly intact. LABORATORY DATA: His white count is 14.0, hemoglobin is 10.8, hematocrit 34.1 with platelets of 154, 000. The patient's sodium is 136, potassium 4.1, chloride 100, CO2 of 25 with a BUN of 53, creatinin e of 1.5 and a glucose of 311. IMPRESSION: The patient has left lower lobe pneumonia with history of severe COPD, oxygen dependent. The patient has a history of congestive heart failure, atrial fibrillation, coronary artery disease and chronic kidney disease. PLAN: We will continue with antibiotics. The patient is getting DuoNeb and continues to be on his E liquis. He is getting Lasix for appropriate diuresis and bronchodilators of Xopenex. The patient is also on prednisone tapering doses and is getting Protonix, Lipitor and O2 via nasal cannula. We skyler l continue with aggressive pulmonary toilet. The patient continues to improve and we will continue t o treat aggressively along with the other consultants and the primary care doctor. Kei Beltran MD cc: [id number] TT: 02/26/2017 19:17:15 Confirmation # [id number] Dictation # [id number] mn
[2017-02-27 05:41] VITALS: TEMP 97.3; O2SAT 94
[2017-02-27] MEDS: Albuterol-Ipratrop 3 mg / 0.5 (3 ml) UD IH SCH ×2 (08:05→11:35)
--- NOTE | 2017-02-27 08:09 | CP.PCM.PN ---
<Naldo Tatum - Last Filed: 02/27/17 08:17> Subjective - Date & Time of Evaluation Date of Evaluation: 02/27/17 Time of Evaluation: 08:05 - Subjective Subjective: Note for Dr. Nance Pt s&eKenia PRINGLE. No complaints. Denies F/c/N/V/D/CP/SOB. +amb + tolerating diet. Feeling better today. Objective - Vital Signs/Intake and Output Vital Signs (last 24 hours): Temp Pulse Resp BP Pulse Ox 97.3 F L 76 22 96/71 L 94 L 02/27/17 05:40 02/27/17 05:40 02/27/17 05:40 02/27/17 05:40 02/27/17 05:40 Intake and Output: 02/27/17 02/27/17 06:59 18:59 Output Total 1875 Balance -1875 - Medications Medications: Current Medications Albuterol/Ipratropium (Duoneb 3 Mg/0.5 Mg (3 Ml) Ud) 3 ml [id number] [facility] Last Admin: 02/26/17 21:06 Dose: 3 ml Apixaban (Eliquis) 2.5 mg PO BID NANI PRN Reason: Protocol Last Admin: 02/26/17 17:29 Dose: 2.5 mg Atorvastatin Calcium (Lipitor) 20 mg PO DIN [facility] Last Admin: 02/26/17 17:29 Dose: 20 mg Diltiazem HCl (Cardizem) 30 mg PO BID [facility] Last Admin: 02/26/17 17:29 Dose: 30 mg Furosemide (Lasix) 40 mg IVP DAILY [facility] Last Admin: 02/26/17 09:42 Dose: 40 mg Guaifenesin/Dextromethorphan (Robitussin Dm) 5 ml PO Q4H PRN PRN Reason: Cough Azithromycin (Zithromax 500mg In Ns) 250 mls @ 167 mls/hr IVPB DAILY [facility] PRN Reason: Protocol Last Admin: 02/26/17 11:02 Dose: 167 mls/hr Ceftriaxone Sodium (Rocephin 1 Gram Ivpb) 100 mls @ 100 mls/hr IVPB DAILY [facility] PRN Reason: Protocol Last Admin: 02/26/17 09:40 Dose: 100 mls/hr Insulin Human Regular (Humulin R Med) 0 units SC ACHS [facility] PRN Reason: Protocol Last Admin: 02/26/17 22:46 Dose: Not Given Methylprednisolone (Solu-Medrol) 20 mg IVP Q12 [facility] Last Admin: 02/26/17 22:44 Dose: 20 mg Pantoprazole Sodium (Protonix Ec Tab) 40 mg PO 0730,1630 [facility] Last Admin: 02/26/17 17:29 Dose: 40 mg Sildenafil Citrate (Revatio) 20 mg PO TID [facility] Last Admin: 02/26/17 17:29 Dose: 20 mg - Labs Labs: 02/26/17 06:30 02/26/17 06:30 PT 13.3 Seconds (9.9-11.8) H 02/24/17 05:43 INR 1.23 (0.93-1.08) H 02/24/17 05:43 APTT 30.1 Seconds (23.7-30.8) 02/24/17 05:43 - Constitutional Appears: Non-toxic, No Acute Distress - Head Exam Head Exam: ATRAUMATIC, NORMAL INSPECTION, NORMOCEPHALIC - Eye Exam Eye Exam: EOMI, Normal appearance, PERRL Pupil Exam: NORMAL ACCOMODATION, PERRL - ENT Exam ENT Exam: Mucous Membranes Moist, Normal Exam - Neck Exam Neck Exam: Full ROM, Normal Inspection. absent: Lymphadenopathy - Respiratory Exam Respiratory Exam: Clear to Ausculation Bilateral, NORMAL BREATHING PATTERN - Cardiovascular Exam Cardiovascular Exam: REGULAR RHYTHM, +S1, +S2. absent: Murmur - GI/Abdominal Exam GI & Abdominal Exam: Soft, Normal Bowel Sounds. absent: Distended, Tenderness - Extremities Exam Extremities Exam: Full ROM, Normal Capillary Refill, Normal Inspection. absent : Joint Swelling, Pedal Edema - Back Exam Back Exam: NORMAL INSPECTION - Neurological Exam Neurological Exam: Alert, Awake, CN II-XII Intact, Normal Gait, Oriented x3 - Psychiatric Exam Psychiatric exam: Normal Affect, Normal Mood - Skin Skin Exam: Dry, Intact, Normal Color, Warm Assessment and Plan - Assessment and Plan (Free Text) Assessment: 75 M w Pneumonia, COPD, Afib, DM: Stable -Dr. Nance will see in AM -Medical Management -ABX -Insulin sliding scale -MOnitor VS DW Dr. Nance <Sky Nance - Last Filed: 02/28/17 09:57> Objective - Vital Signs/Intake and Output Vital Signs (last 24 hours): Temp Pulse Resp BP Pulse Ox 97.3 F L 78 20 119/70 94 L 02/27/17 12:00 02/27/17 12:00 02/27/17 12:00 02/27/17 12:00 02/27/17 05:40 - Labs Labs: 02/26/17 06:30 02/26/17 06:30 PT 13.3 Seconds (9.9-11.8) H 02/24/17 05:43 INR 1.23 (0.93-1.08) H 02/24/17 05:43 APTT 30.1 Seconds (23.7-30.8) 02/24/17 05:43 Assessment and Plan - Assessment and Plan (Free Text) Assessment: Dx: Acute CO-CHF L Pneumonitis Type II DM COBPD Pt will sign AMA to go home for Dr Beltran and Umer all agree with this Add Levquin 500 x 7days Metdormin 500 BID Angelina Nance MD FACS
[2017-02-27] MEDS: Pantoprazole 40 mg EC Tab PO SCH (08:27)
[2017-02-27] MEDS: Insulin Reg-MEDIUM-Coverage SC SCH ×2 (08:27→12:05)
[2017-02-27] MEDS: cefTRIAXone 1 gm 100 ML IVPB SCH (09:40)
[2017-02-27] MEDS: Sildenafil 20 MG TAB PO SCH (09:47)
[2017-02-27] MEDS: MethylPREDNISolone 40 mg Vial IVP SCH (09:48)
[2017-02-27] MEDS: Azithromycin 500MG/NS 250ml 250 ML IVPB SCH (10:31)
[2017-02-27 12:14] VITALS: BP 119/70; PULSE 78; RESP 20
--- NOTE | 2017-03-01 13:47 | PQF AMI ---
03/01/17 Dr. Sky Nance, Progress note of 02/27 documents "acute WY." Other notes document an old WY. Please clarify whether patient had an acute WY on this admission. Thank you. Clarification of your documentation is requested to better reflect the severity of illness and intensity of treatment of your patient. Indicators present [x] Diagnosis of WY without specification of time frame (within 28 days of admission of greater than 28 days prior to admission) [] Diagnosis of subsequent WY (time frame of previous WY within 28 days of admission or greater than 28 days of admission) x[x] Diagnosis of WY w/o specified site [] EKG positive for changes (i.e.; ST elevation, non-ST elevation, Q-wave changes, etc.) [x] Elevated Troponins [] Elevated Cardiac Enzymes [x Cardiac consult documentation of [] Chest pain/ACS/Unstable Angina [] Echo findings of [] Other: [] Location in the medical record that reflects the above clinical findings:[] Other Treatment Provided:[] PHYSICIAN'S RESPONSE Based on your medical judgment of the clinical indicators outlined above, are you treating this patient for a known or suspected: [ x] NSTEMI [ ] STEMI Site: [ ] [ ] ACS/Unstable Angina [ ] Angina :[ ] [ ] Other, please indicate [ ]___ If Unable to Determine, please check the box, sign and date Present On Admission (POA) Indicator: [x ] Present at the time of admission [ ] Not present at the time of admission [ ] Clinically Undetermined * If you have any questions please call:[ ] * Thank you, [ ] dye room helper In responding to this query, please exercise your independent professional judgment. The fact that a question is asked does not imply that any particular answer is desired or expected. Thank you for your clarification on this documentation. CINTIA
--- NOTE | 2017-03-10 09:54 | DS ---
CHIEF COMPLAINT: Shortness of breath, temperature of 100.8. HISTORY OF PRESENT ILLNESS: This is an 81-year-old male with a 1-week history of worsening shortness of breath, difficulty bringing up sputum. He has a significant past history of severe chr onic obstructive pulmonary disease secondary to 60 pack years of smoking and known symptomatic obstru ctive coronary artery disease with congestive heart failure. He has had an earlier cardiac catheteri zation confirming all this. His most recent admission was 3 months earlier and he was in satisfactor y condition requiring adequate medication for his COPD, Eliquis for his atrial fibrillation and the a ddition of prednisone to facilitate his breathing, and he had been doing well until the 1 week prior to admission. PAST MEDICAL HISTORY: Includes: 1. Atrial fibrillation with rapid heart rate. 2. A previous myocardial infarction. 3. Gout. 4. Renal insufficiency. 5. Severe chronic obstructive pulmonary disease with exacerbation. ALLERGIES: None. SOCIAL HISTORY: Denies tobacco and only drinks 1 glass of wine with dinner. MEDICATIONS: Cardizem 30 b.i.d., prednisone 10 mg, sildenafil 20 t.i.d., Lasix 40, Advair Diskus 500 /50 b.i.d., Nexium 40, Lipitor 20, and Eliquis 2.5 b.i.d. PHYSICAL EXAMINATION: VITAL SIGNS: He is 145 pounds. His pressure is 130/80. His pulse is 117. LUNGS: Have crackles and rhonchi. EXTREMITIES: Have some cyanosis. A slight amount of edema. NEUROLOGIC: Intact. LABORATORY DATA: Essentially normal with evidence of congestive cardiomyopathy and elevated BNP. HOSPITAL COURSE: The patient is placed on telemetry and seen by cardiology and pulmonary medicinegene for his pneumonitis which is in bilateral base on the x-ray, and does quite well ove r the next 2 days. In the previous admission, he was placed on milrinone (Primacor). This time, thi s is not used due to his rapid heart rate and it was controlled with oral medication, high dose stero ids were used, and his cardiac enzymes demonstrated on admission a 0.27 troponin which dropped on the following day to 0.16. The patient and his family were extremely anxious to get him home for the and when exp lained that they would not be held accountable for signing against medical advice they made plans to take him home on Tuesday with the same treatments he was on at home, continuing with the Eliqui s and with the medications. He did get a prescription for antibiotic and also now will be starting a nebulizer treatment as per pulmonary medicine. The plan will be to follow up with Dr. Owusu in the office for a possible cardiac catheterization in t he future and with Dr. Kei Beltran in his office for his pulmonary status. The family will be in close contact with Dr. Nance who will coordinate all the efforts of these experts. DISCHARGE DIAGNOSES: Includes: 1. Sepsis secondary to bibasilar infiltrates. 2. Acute myocardial infarction (cob-KR-zwltmoiie myocardial infarction). 3. Severe chronic obstructive pulmonary disease exacerbation ____. 4. Cardiomyopathy. 5. Atrial fibrillation. 6. Gout. 7. Gastroesophageal reflux. This dictation will be electronically signed without being read. Sky Nance MD cc: [phone] TT: 03/10/2017 09:34:06 al 03/10/2017 08:52:49
== END 2017-02-27 13:11 | disposition left against medical advice (07) | DRG 871 ==
LOC: ED 04:26 → ERH 07:04 → 2RNO 08:43
PROVIDERS: ADMIT Surgery; ATTEND Surgery
DX: A41.9 Sepsis, unspecified organism (principal); J18.9 Pneumonia, unspecified organism; I21.4 Non-ST elevation (NSTEMI) myocardial infarction; I50.23 Acute on chronic systolic (congestive) heart failure; E11.22 Type 2 diabetes mellitus with diabetic chronic kidney disease; I48.92 Unspecified atrial flutter; J44.0 Chronic obstructive pulmonary disease with (acute) lower respiratory infection; I27.2 Other secondary pulmonary hypertension; I48.2 Chronic atrial fibrillation; J44.1 Chronic obstructive pulmonary disease with (acute) exacerbation; I25.10 Atherosclerotic heart disease of native coronary artery without angina pectoris; N18.9 Chronic kidney disease, unspecified; K21.9 Gastro-esophageal reflux disease without esophagitis; M10.9 Gout, unspecified; D64.9 Anemia, unspecified; R09.02 Hypoxemia; Z79.899 Other long term (current) drug therapy; Z87.891 Personal history of nicotine dependence; Z96.653 Presence of artificial knee joint, bilateral; Z99.81 Dependence on supplemental oxygen; R40.2412 Glasgow coma scale score 13-15, at arrival to emergency department; I25.2 Old myocardial infarction; I73.9 Peripheral vascular disease, unspecified; I08.3 Combined rheumatic disorders of mitral, aortic and tricuspid valves; I99.8 Other disorder of circulatory system; J98.8 Other specified respiratory disorders

== ENCOUNTER 2017-05-02 02:15 | Emergency (ER) | payer MEDICARE, OTHER ==
[2017-05-02 02:16] VITALS: PULSE 103; BMI 24.7
--- NOTE | 2017-05-02 02:18 | ED PDOC ---
Arrival/HPI - General Time Seen by Provider: 05/02/17 02:17 Historian: Patient - History of Present Illness Narrative History of Present Illness (Text): 05/02/17 01:51 Guillermo Ramirez is an 81 year old male, whose past medical history includes atrial fibrillation/flutter, CHF, multiple MIs, CAD, Gout, renal insufficiency, and severe COPD, who presents to the Emergency department brought in by BLS for cardiac arrest with CPR in progress. As per EMS, was assisting the patient from the bathroom in to bed when he started complaining of sudden shortness of breath and became unresponsive. notified EMS, CPR was commenced and patient placed on bag-valve mask on arrival to the scene. EMS report patient was down for about 45 minutes.Pt. asystolic prior to and on arrival. Limited HPI and ROS due to cardiac arrest. Time/Duration: Prior to Arrival Symptom Onset: Sudden Activities at Onset: Rest, Light Context: Home Past Medical History - Provider Review Nursing Documentation Reviewed: Yes - Infectious Disease Hx of Infectious Diseases: None - Tetanus Immunization Tetanus Immunization: Unknown - Cardiac Hx Cardiac Disorders: Yes Hx Congestive Heart Failure: Yes Hx Hypertension: Yes - Pulmonary Hx Chronic Obstructive Pulmonary Disease (COPD): Yes - Neurological Hx Neurological Disorder: No Hx Dizziness: No (denied) - HEENT Hx HEENT Disorder: Yes (vision impaired left eye) - Renal Hx Renal Disorder: Yes - Endocrine/Metabolic Hx Endocrine Disorders: No - Hematological/Oncological Hx Blood Disorders: No - Integumentary Hx Dermatological Disorder: No Other/Comment: ble multiple skin discolorations and varicose veins - Musculoskeletal/Rheumatological Hx Arthritis: Yes (knees) - Gastrointestinal Hx Gastrointestinal Disorders: Yes (hernia) Hx Gastroesophageal Reflux: Yes - Genitourinary/Gynecological Hx Genitourinary Disorders: No Hx Incontinence: (denied) - Psychiatric Hx Emotional Abuse: No Hx Physical Abuse: No Hx Substance Use: No - Surgical History Hx Cardiac Catheterization: Yes (2007) Hx Inguinal Hernia Repair: Yes Hx Joint Replacement: Yes (bilateral knee from arthritis) Other/Comment: abcess to back - Anesthesia Hx Anesthesia: No Hx Anesthesia Reactions: No Hx Malignant Hyperthermia: No - Suicidal Assessment Feels Threatened In Home Enviroment: No Family/Social History - Physician Review Nursing Documentation Reviewed: Yes Family/Social History: Unknown Family HX Smoking Status: Former Smoker Hx Alcohol Use: No Hx Substance Use: No Hx Substance Use Treatment: No Allergies/Home Meds Allergies/Adverse Reactions: Allergies No Known Allergies Allergy (Verified 04/08/16 09:20) Home Medications: Home Meds Medication Instructions Recorded Confirmed Atorvastatin [Lipitor] 20 mg PO DIN 03/05/16 02/24/17 Esomeprazole Magnesium [Nexium] 40 mg PO QAM 03/05/16 02/24/17 Fluticasone/Salmeterol 500/50 0 puff IH Q12 03/05/16 02/24/17 [Advair Diskus 500/50] Furosemide [Lasix] 40 mg PO QAM 03/05/16 02/24/17 Potassium Chloride [K-Tab ER] 10 meq PO QAM 03/05/16 02/24/17 Sildenafil Citrate [Sildenafil] 20 mg PO TID 03/05/16 02/24/17 diltiaZEM [Cardizem] 30 mg PO BID 03/05/16 02/24/17 Apixaban [Eliquis] 2.5 mg PO BID 04/08/16 02/24/17 Review of Systems - Review of Systems Systems not reviewed;Unavailable: Other (Cardiac arrest) Physical Exam Vital Signs Reviewed: Yes Vital Signs Temp Pulse BP Pulse Ox 05/02/17 02:15 101.0 F H 74 120/79 54 L Pulse: Pulseless Respiratory Rate: Apneic Appearance: Positive for: Ill-Appearing Mental Status: Positive for: Comatose - Systems Exam Head: Present: Atraumatic, Normocephalic Pupils: Present: Other (fixed and dilated) Pharnyx: Present: Normal Neck: Present: Normal Range of Motion Respiratory/Chest: Present: Clear to Auscultation Cardiovascular: Present: Other (no rate or rhythm) Abdomen: No: Tenderness, Distention Neurological: Present: Other (unresponsive to painful stimuli) Skin: Present: Other (mottling) Medical Decision Making ED Course and Treatment: 05/02/17 01:51 Impression: 81 year old male brought in by BLS, CPR in progress, BVM in place for cardiac arrest. Plan: -- EKG -- Chest X-ray -- Labs, cardiac enzymes -- Reassess and disposition Prior Visits: Notes and results from previous visits were reviewed. Progress Notes: ACLS protocol commenced on arrival. Pt intubated. PROCEDURE: INTUBATION Performed by the emergency provider Consent: Discussion of the risks, benefits, and alternatives to the procedure, along with informed consent *was precluded by the urgency of the procedure and the patient condition. Timeout: A timeout to verify the correct patient, procedure, and site was performed. Indication: cardiac arrest Pre-oxygenation: [id number] ETT Size: 8.0 Confirmation: Cords directly visualized as tube passed, good bilateral breath sounds, positive CO2 detector color change, tube fogging, adequate chest rise, improving pulse oximetry reading, and absence of gastric sounds,. ETT Secured: The cuff was inflated and the tube was secured appropriately at a distance of 23 cm at the lip. Post-Procedure: There were no immediate complications. Pt's initial rhythm was asystole, converted to varying rhythms including sinus tachycardia, ventricular tachycardia, transient brief return of a pulse, however with further degrading rhythms, pulseless electrical activity, subsequent asystole despite all attempts at mechanical and chemical resuscitation. Pt did not regain consciousness, subsequently pronounced. 05/02/17 02:36 Time of called: 02:36. ME notified. 05/02/17 03:[address] Mary Nance, who is aware and agrees with plan. States he will fill/sign out certificate. - Lab Interpretations Lab Results: 05/02/17 02:32 Lab Results 05/02/17 02:32: WBC 17.3 H D, RBC 4.65, Hgb 12.1 L, Hct 41.2 L, MCV 88.6, MCH 26.0, MCHC 29.4 L, RDW 19.3 H, Plt Count 160, MPV 11.6 H 05/02/17 02:32: PT 14.8 H, INR 1.37 H, APTT 37.1 H - Scribe Statement The provider has reviewed the documentation as recorded by the Scribe Tiffanie Barboza All medical record entries made by the Scribe were at my direction and personally dictated by me. I have reviewed the chart and agree that the record accurately reflects my personal performance of the history, physical exam, medical decision making, and the department course for this patient. I have also personally directed, reviewed, and agree with the discharge instructions and disposition. Disposition/Present on Arrival - Present on Arrival Any Indicators Present on Arrival: No History of DVT/PE: No History of Uncontrolled Diabetes: No Urinary Catheter: No History Surgical Site Infection Following: None - Disposition Have Diagnosis and Disposition been Completed?: Yes Diagnosis: Cardiac arrest Disposition: WITH WITHOUT AUTOPSY Disposition Time: 02:36 Condition:
[2017-05-02 02:44] LABS: HEMATOCRIT 41.2 % (42.0-52.0); MEAN CELL VOLUME 88.6 fL (80.0-105.0); WHITE BLOOD COUNT 17.3 10^3/ul (4.5-11.0)
[2017-05-02 02:45] LABS: MEAN CORPUSCULAR HGB CONC 29.4 g/dl (31.0-37.0); MEAN PLATELET VOLUME 11.6 fl (7.0-11.0); RED CELL DISTRIBUTION WIDTH 19.3 % (11.5-14.5)
[2017-05-02 02:47] LABS: INR 1.37 (0.93-1.08); PARTIAL THROMBOPLASTIN TIME 37.1 Seconds (23.7-30.8)
[2017-05-02 05:32] VITALS: BP 120/79; PULSE 74; TEMP 101; O2SAT 54
--- NOTE | 2017-05-03 18:05 | CARD ---
APPROVED REPORT EKG Measurement Heart [id number] <Conclusion> Wide QRS rhythm, ? Junctional Right bundle branch block Septal infarct, age undetermined Possible Lateral infarct, age undetermined Inferior infarct, age undetermined Abnormal ECG
== END 2017-05-02 05:51 ==
LOC: ED 02:15
DX: I46.9 Cardiac arrest, cause unspecified (principal); I25.10 Atherosclerotic heart disease of native coronary artery without angina pectoris; I11.0 Hypertensive heart disease with heart failure; I50.9 Heart failure, unspecified; I25.2 Old myocardial infarction; J44.9 Chronic obstructive pulmonary disease, unspecified; N28.9 Disorder of kidney and ureter, unspecified; Z87.891 Personal history of nicotine dependence